=== PATIENT | male | born 1985 | race Caucasian/White ===

== ENCOUNTER 2024-06-04 22:46 | Emergency (ER) | payer SELFPAY ==
[~2024-06-04] VITALS: Ht 175.3 cm; Wt 90.0 kg
[2024-06-04 22:50] VITALS: O2SAT 99
[2024-06-04 23:07] LABS: BASOPHILS % 0.7 % (0.0-2.0); HEMOGLOBIN. 15.7 g/dL (14.0-18.0); LYMPHOCYTES % 23.2 % (20.0-50.0); MEAN CORPUSCULAR HEMOGLOBIN 30.5 pg (28.0-32.0); MEAN CORPUSCULAR HGB CONC 34.8 g/dL (31.0-37.0); MEAN CORPUSCULAR VOLUME 87.7 fL (80.0-94.0); MEAN PLATELET VOLUME 9.6 fl (7.4-10.4); MONOCYTES % 6.9 % (2.0-8.0); NEUTROPHILS % 69.2 % (40.0-76.0); PLATELET 268 x1000/uL (130-400); RED BLOOD CELL COUNT 5.13 mill/uL (4.7-6.1); RED CELL DISTRIBUTION WIDTH 14.4 % (11.6-14.6); WHITE BLOOD COUNT 20.6 x1000/uL (4.5-11.0)
[2024-06-04 23:14] LABS: CHLORIDE 100 mEq/L (98-107); POTASSIUM 4.4 mEq/L (3.5-5.1); SODIUM 134 mEq/L (136-145)
[2024-06-04 23:15] LABS: CALCIUM 8.9 mg/dL (8.7-10.4); CARBON DIOXIDE 16 mEq/L (21-32)
[2024-06-04 23:20] LABS: CREATININE 1.1 mg/dL (0.6-1.3); GLUCOSE 224 mg/dL (70-105); TROPONIN I HIGH SENSITIVITY 7 ng/L (3.0-53); UREA NITROGEN BLOOD 11 mg/dL (9-23)
[2024-06-04 23:22] LABS: ETHANOL BLOOD < 10 mg/dL (<10)
[2024-06-04 23:24] LABS: THYROID STIMULATING HORMONE 1.49 uIU/mL (0.55-4.78)
[2024-06-04] MEDS: SODIUM CHLORIDE 0.9% 1,000 ML IV ONE (23:49)
[2024-06-04] MEDS: LORAZEPAM 2MG/ML INJ IV ONE (23:53)
[2024-06-04] MEDS: CHLORDIAZEPOXIDE 25MG CAPSULE PO ONE (23:53)
[2024-06-05] MEDS ORDERED: L10 MT (00:44)
[2024-06-05] MEDS: SODIUM CHLORIDE 0.9% 1,000 ML IV ONE (00:53)
[2024-06-05] MEDS: CHLORDIAZEPOXIDE 10MG CAPSULE PO ONE (01:11)
[2024-06-05 01:16] VITALS: BP 180/109; PULSE 74; RESP 18
[2024-06-05] MEDS: CHLORDIAZEPOXIDE 25MG CAPSULE PO ONE (06:25)
== END 2024-06-05 01:42 | disposition home or self-care (01) ==
LOC: ER 22:46
DX: R00.2 Palpitations (principal)
CPT/HCPCS: 80048; 80320; 83880; 84443; 85025; 84484; 36415; 71045; 93005; 96361 ×2; 96374; 99285; J2060; J7030 ×2; G0480